=== PATIENT | male | born 2000 | race Caucasian/White ===

== ENCOUNTER 2019-12-27 14:10 | Emergency (ER) | payer OTHER, SELFPAY ==
[~2019-12-27] VITALS: Ht 172.7 cm; Wt 74.0 kg
[2019-12-27 15:09] VITALS: BP 140/65
== END 2019-12-27 17:00 | disposition home or self-care (01) ==
LOC: ER 15:34
DX: Z03.818 Encounter for observation for suspected exposure to other biological agents ruled out (principal)
CPT/HCPCS: 87635; 99283